=== PATIENT | male | born 1935 | race Caucasian/White ===

== ENCOUNTER 2016-10-14 17:19 | Inpatient (IN) ==
[2016-10-14] MEDS ORDERED: *HR* OxyCODONE Immed Rel 5 MG TABLET PO PRN (20:18)
[2016-10-14] MEDS: MOM Conc 10 ML UD.LIQ PO PRN (22:55)
[2016-10-15] MEDS: *HR* OxyCODONE Immed Rel 5 MG TABLET PO PRN ×3 (05:05→16:19)
[2016-10-15] MEDS: *HR* Enoxaparin 40 MG/0.4 ML SYRINGE SQ SCH (05:06)
[2016-10-15] MEDS ORDERED: Aspirin Enteric Coated 325 MG Tablet PO SCH (09:00)
[2016-10-15] MEDS: MOM Conc 10 ML UD.LIQ PO PRN (09:09)
--- NOTE | 2016-10-15 15:03 | Internal Med History&Physical ---
Date of Encounter: 10/15/16 Time of Encounter: 14:30 Assessment and Plan (1) Arthritis of right hip Current visit: No Status: Acute Status post THR 10/11/2016. Continue rehabilitation therapy and Lovenox. (2) Hyperglycemia Current visit: No Status: Chronic We will check anemia testing and hemoglobin A1c in a.m. (3) Anemia Current visit: No Status: Acute Suspect due to blood loss from surgery. We will check anemia testing in a.m. Qualifiers: Anemia type: unspecified type Qualified Code(s): D64.9 - Anemia, unspecified Internal Medicine - H&P: HPI Chief complaint: Elective right hip replacement Admitted From: Hospital to Hospital Transfer Plans for Post Hospital Care: Home History of present illness: Mr. Cruz is a 80 year old male who was hospitalized at [facility] October 11- for elective right total hip replacement. His postop course was unremarkable and he was transferred to [facility] swing bed for rehabilitation therapy prior to returning home. 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 He has DJD but no known gout or other bone joint or muscle disorders. Past Med Surg Social Fam HX - Past Medical History Medical history: arthritis Psychiatric history: no psych history - Past Surgical History Surgical History: hip replacement - Social History Smoking Status: Smoker, status unknown Smokeless Tobacco Status: No Alcohol use: rarely Drug use: none - Family History Mother Living Status: Hx Family Cardiac Disorders: Yes Internal Medicine - H&P: Meds Terazosin HCl 10 mg PO QPM 11/17/15 [History] Aspirin Enteric Coated [Aspirin EC] 325 mg PO DAILY #21 tablet. 10/10/16 [Rx] OxyCODONE Immed Rel [Roxicodone 5 MG] 5 - 10 mg PO Q6HR PRN #40 tablet 10/10/16 [Rx] Allergies No Known Allergies Allergy (Verified 10/11/16 10:52) All Systems PM: A 10-system review of systems was performed and is negative for pertinent findings except as documented above in the HPI. Review of systems: Review of systems from his November 2015 history and physical reviewed and revised as below. Gen.: His weight has been stable since the November 2015 hospitalization. Cardiovascular: He denies hypertension UT heart failure angina DVT or pulmonary embolus Respiratory: He is a lifelong nonsmoker and has no known chronic lung disease GI: Denies disorders of his liver gallbladder or exocrine pancreas : He has BPH denies other kidney or bladder disorders Neurologic: He denies large distribution strokes or seizures Endocrine: He states he is prediabetic. His most recent hemoglobin A1c was 5.9 % on 11/22/2015. He denies thyroid disease or hyperlipidemia Hematology/oncology: Denies blood disorders cancers or anemia. Psychiatric: Denies anxiety depression or other mental health issues. Musculoskeletal: As per history of present illness - Constitutional Vitals: Temp Pulse Resp BP Pulse Ox 98 F 65 16 173/72 95 10/15/16 06:00 10/15/16 11:50 10/15/16 11:50 10/15/16 11:50 10/15/16 11:50 Exam: Gen.: He is a well-developed well-nourished male who appears in no acute distress at present time HEENT: Head is atraumatic and normocephalic. Eyes: EOMI. There is no scleral icterus. Mouth: Mucosa is moist. Neck: Supple and nontender. There is no thyromegaly or adenopathy noted. Heart: Regular without murmurs gallops or ectopics. Lungs: No wheezes or crackles are heard. Abdomen: Soft and nontender. No masses or guarding are noted. Extremities: There is no cyanosis edema or clubbing noted. Dorsalis pedis and posttibial pulses are 1-2 over 2 bilaterally. He has a bandage covering the right hip incision area. Neurologic: Mental status: He is talkative and a good historian. Cranial nerves : Smile is symmetric. Forehead wrinkles bilaterally. Tongue protrudes midline. EOMI. Motor: There is no pronator drift. Cerebellar: Finger to nose is intact bilaterally. Skin: Warm and dry
[2016-10-15] MEDS ORDERED: Lactulose Oral Soln 20 GM/30 ML UDC PO PRN (18:51)
[2016-10-16 04:52] LABS: Basophils % 0.3 %; Eosinophils # 0.1 K/mcL (0.0-0.6); Hematocrit 30.5 % (37.5-50.1); Hemoglobin 10.2 g/dL (12.9-16.9); Immature Granulocytes % 0.9 % (0-4); Lymphocytes # 1.4 K/mcL (0.6-4.6); Lymphocytes % 21.4 %; Mean Corpuscular HGB Conc 33.4 g/dL (31.6-35.5); Mean Corpuscular Hemoglobin 32.1 pg (28.0-33.3); Mean Corpuscular Volume 95.9 fL (83.0-100.0); Mean Platelet Volume 8.7 fL (9.4-12.4); Monocytes # 0.9 K/mcL (0.0-1.3); Monocytes % 12.8 %; Neutrophils # 4.3 K/mcL (1.6-8.9); Platelet Count 291 K/mcL (140-400); Red Blood Count 3.18 M/mcL (4.19-5.50); Red Cell Distribution Width 13.2 % (11.5-14.5); Segmented Neutrophils % 63.6 %
[2016-10-16] MEDS: *HR* Enoxaparin 40 MG/0.4 ML SYRINGE SQ SCH (05:36)
[2016-10-16] MEDS: *HR* OxyCODONE Immed Rel 5 MG TABLET PO PRN (05:37)
[2016-10-16 13:06] LABS: Hemoglobin A1C 5.8 %
[2016-10-16 13:09] LABS: % Iron Saturation 12 % (20-55); Iron 22 mcg/dL (65-175); Transferrin 129 mg/dL (174-364)
[2016-10-16 13:31] LABS: Ferritin 364 ng/ml (22-275)
[2016-10-17] MEDS: *HR* Enoxaparin 40 MG/0.4 ML SYRINGE SQ SCH (06:25)
[2016-10-17] MEDS: *HR* OxyCODONE Immed Rel 5 MG TABLET PO PRN ×2 (06:26→19:30)
--- NOTE | 2016-10-17 11:08 | Internal Med Progress Note ---
Date of Encounter: 10/17/16 Time of Encounter: 10:55 - Assessment and plan (1) Arthritis of right hip Current Visit: No Status: Acute Assessment and plan: October 17. Status post THR 10/11/2016. Continue rehabilitation therapy and Lovenox (2) Hyperglycemia Current Visit: No Status: Chronic Assessment and plan: October 17. Hemoglobin A1c was acceptable at 5.8%. (3) Anemia Current Visit: No Status: Acute Assessment and plan: October 17. Hemoglobin was improved to 10.2 yesterday. Qualifiers: Anemia type: unspecified type Qualified Code(s): D64.9 - Anemia, unspecified - Subjective Interval history: October 17. He has no new complaints except he has not had a BM in 5 days - Constitutional Vitals: Temp Pulse Resp BP Pulse Ox 98.2 F 80 16 156/75 94 10/17/16 07:03 10/17/16 07:03 10/17/16 07:03 10/17/16 07:03 10/17/16 08:38 Exam: He is sitting in a chair at bedside resting comfortably. He appears in no acute distress. His affect is bright and cheerful. Reviewed his medications and lab results. Internal Medicine: Result - Labs CBC & Chem 7: 10/16/16 04:30 - VTE Documentation of Mechanical Device: Intermittent pneumatic compression device Consult Discharge Plan - Plan Referrals: NO,PCP [Primary Care Provider] - 1 week
[2016-10-17] MEDS ORDERED: Bisacodyl 10 MG RECTAL SUPPOSITORY RC PRN (11:40)
[2016-10-17] MEDS ORDERED: MOM Conc 10 ML UD.LIQ PO SCH (19:00)
[2016-10-17] MEDS: MOM Conc 10 ML UD.LIQ PO SCH (19:27)
[2016-10-17] MEDS ORDERED: Bisacodyl 10 MG RECTAL SUPPOSITORY RC ONE (21:00)
[2016-10-18] MEDS: *HR* Enoxaparin 40 MG/0.4 ML SYRINGE SQ SCH (06:02)
[2016-10-18] MEDS: *HR* OxyCODONE Immed Rel 5 MG TABLET PO PRN ×4 (06:02→20:51)
[2016-10-18] MEDS: Melatonin 3 MG TABLET PO PRN (20:50)
[2016-10-19] MEDS: *HR* Enoxaparin 40 MG/0.4 ML SYRINGE SQ SCH (06:33)
[2016-10-19] MEDS: *HR* OxyCODONE Immed Rel 5 MG TABLET PO PRN ×4 (07:11→22:51)
--- NOTE | 2016-10-19 11:40 | Internal Med Progress Note ---
Date of Encounter: 10/19/16 Time of Encounter: 11:30 - Assessment and plan (1) Arthritis of right hip Current Visit: No Status: Acute Assessment and plan: October 17. Status post THR 10/11/2016. Continue rehabilitation therapy and Lovenox (2) Hyperglycemia Current Visit: No Status: Chronic Assessment and plan: October 17. Hemoglobin A1c was acceptable at 5.8%. (3) Anemia Current Visit: No Status: Acute Assessment and plan: October 17. Hemoglobin was improved to 10.2 yesterday. Qualifiers: Anemia type: unspecified type Qualified Code(s): D64.9 - Anemia, unspecified - Subjective Interval history: October 17. He has no new complaints except he has not had a BM in 5 days October 19. He has no complaints today. He had a large BM last night and feels significantly better. He is anticipating discharge home tomorrow. - Constitutional Vitals: Temp Pulse Resp BP Pulse Ox 98.3 F 73 16 148/74 98 10/19/16 06:44 10/19/16 07:57 10/19/16 07:57 10/19/16 07:57 10/19/16 07:57 Exam: He is resting comfortably in bed and appears in no distress. His affect is bright and cheerful. I reviewed his medications and lab results. Internal Medicine: Result - Labs CBC & Chem 7: 10/16/16 04:30 - VTE Documentation of Mechanical Device: Intermittent pneumatic compression device Consult Discharge Plan - Plan Referrals: NO,PCP [Primary Care Provider] - 1 week
[2016-10-19] MEDS: MOM Conc 10 ML UD.LIQ PO SCH (17:32)
[2016-10-19] MEDS: Melatonin 3 MG TABLET PO PRN (20:56)
[2016-10-20] MEDS: *HR* OxyCODONE Immed Rel 5 MG TABLET PO PRN ×3 (02:59→11:58)
[2016-10-20] MEDS: *HR* Enoxaparin 40 MG/0.4 ML SYRINGE SQ SCH (05:10)
[2016-10-20 07:11] VITALS: BP 148/68
--- NOTE | 2016-10-20 10:52 | Discharge Summary ---
Date of Encounter: 10/20/16 Time of Encounter: 10:40 - Discharge Diagnosis (1) Arthritis of right hip Priority: Primary Status: Acute (2) Hyperglycemia Priority: Secondary Status: Chronic (3) Anemia Priority: Secondary Status: Acute Qualifiers: Anemia type: unspecified type Qualified Code(s): D64.9 - Anemia, unspecified - Discharge Medications Home Medications: Terazosin HCl 10 mg PO QPM 11/17/15 [History] Aspirin Enteric Coated [Aspirin EC] 325 mg PO DAILY #21 tablet. 10/10/16 [Rx] OxyCODONE Immed Rel [Roxicodone 5 MG] 5 - 10 mg PO Q6HR PRN #40 tablet 10/10/16 [Rx] Allergies/Adverse Reactions: Allergies No Known Allergies Allergy (Verified 10/11/16 10:52) Date of admission: 10/14/16 19:36 Primary care physician: Zaheer Nova M.D. Consults: 10/15/16 07:21 PT [Consult to Physical Therapy] [CONS] Routine Comment: Evaluate, develop and implement POC Reason for Consult: evaluate, develop and implement plan of care 10/15/16 07:23 OT [Consult to Occupational Therapy] [CONS] Routine Comment: Evaluate, develop and implement POC Reason for Consult: Evaluate, Develop and implement plan of care 10/15/16 07:26 Consult to High Density Press Operator [CONS] Routine Reason for SW Consult: Discharge Planning - Patient Status Disposition: Home, Self-Care Functional capacity at discharge: uses cane/walker Overall status at discharge: patient is progressing back to baseline - Discharge Instructions Follow Up With: Zaheer Nova MD [Non-Partnered Physician] - 1 week - Diet and Activity Activity: as per physical therapy Diet: advance to your usual diet Hospital course: Mr. Cruz is a 81 year old male who was hospitalized at [facility] October 11- for elective right total hip replacement. His postop course was unremarkable and he was transferred to [facility] swing bed for rehabilitation therapy prior to returning home. Initial orders were written by the discharging physicians at [facility]. I saw him on October 15 and performed a swing bed history and physical. He had physical therapy and occupational therapy evaluations with ongoing intervention. Lovenox was used for DVT prophylaxis. He progressed satisfactorily in therapy and felt stable for discharge home on October 20. He will follow with his PCP within one week and with his orthopedist as directed. Hemoglobin A1c returned satisfactory at 5.8%. Her hemoglobin cande to 10.2 on October 16. - Time Spent with Patient Total time spent providing and/or coordinating discharge services: - Constitutional Vitals: Temp Pulse Resp BP Pulse Ox 97.7 F 76 16 148/68 95 10/20/16 07:08 10/20/16 08:01 10/20/16 08:01 10/20/16 08:01 10/20/16 08:01 - VTE Documentation of Mechanical Device: Intermittent pneumatic compression device
== END 2016-10-20 12:42 | disposition home or self-care (01) | DRG 561 ==
LOC: INPPIK 19:36
PROVIDERS: ADMIT Internal Medicine; ATTEND Internal Medicine